=== PATIENT | male | born 1965 | race Caucasian/White ===

== ENCOUNTER 2018-11-24 13:01 | Emergency (ER) | payer MEDICAID ==
[~2018-11-24] VITALS: Ht 167.6 cm; Wt 139.0 kg
[2018-11-24 13:03] VITALS: BP 145/72
--- NOTE | 2018-11-24 13:14 | NUR ---
PATIENT AMBULATED TO BED 5 AT THIS TIME.
--- NOTE | 2018-11-24 13:30 | NUR ---
53 Y M BIB SELF C/O RIGHT SIDE OF HEAD PAIN & INTERMITENT LEFT CHEST PAIN RADIATING TO LEFT SHOULDER X 1 WEEK. PT DESCRIBES PAIN PRESSURE AND ACHING. DENIES TRAUMA. PAIN 01/15. [id number]. VSS AT THIS TIME. NSR. BED IS DOWN, LOCKED, BED RAIL X 1, ERMD NOTIFIED OF PATIENT STATUS. HX : HIGH CHOLERSTEROL MED: CAN'T REMEMBER NAME
[2018-11-24 13:40] LABS: BASOPHILS # (AUTO) 0.1 K/uL (0.00-0.22); BASOPHILS % (AUTO) 0.9 % (0.0-2.0); EOSINOPHILS % (AUTO) 0.2 % (0.0-4.0); HEMATOCRIT 41.4 % (36-52); HEMOGLOBIN 13.9 g/dL (12.0-18.0); LYMPHOCYTES # (AUTO) 1.6 K/uL (2.0-11.5); LYMPHOCYTES % (AUTO) 24.4 % (20.5-51.1); MEAN CORPUSCULAR HEMOGLOBIN 29 pg (27-31); MEAN CORPUSCULAR HGB CONC 34 g/dL (33-37); MEAN CORPUSCULAR VOLUME 85.8 fL (80-94); MONOCYTES # (AUTO) 0.5 K/uL (0.8-1.0); MONOCYTES % (AUTO) 6.8 % (1.7-9.3); NEUTROPHILS # (AUTO) 4.5 K/uL (1.8-7.7); NEUTROPHILS % (AUTO) 67.7 % (42.2-75.2); PLATELET COUNT (AUTO) 231 K/uL (140-450); RED BLOOD CELL COUNT(AUTO) 4.82 MIL/uL (4.20-6.10); RED CELL DISTRIBUTION WIDTH 14.6 % (11.6-13.7); WHITE BLOOD COUNT (AUTO) 6.7 K/uL (4.8-10.8)
[2018-11-24 13:41] LABS: APPEARANCE,URINE CLEAR (CLEAR); BILIRUBIN,URINE NEGATIVE (NEGATIVE); BLOOD, URINE 3+ (NEGATIVE); COLOR,URINE YELLOW (YELLOW); LEUKOCYTE ESTERASE ,URINE NEGATIVE (NEGATIVE); NITRITE, URINE NEGATIVE (NEGATIVE); PH,URINE 7.5 (5.0-9.0); UGLUCOSE NEGATIVE (NEGATIVE)
[2018-11-24 13:59] LABS: PROTHROMBIN TIME 9.3 secs (10.8-13.4)
[2018-11-24] MEDS ORDERED: ASPIRIN 81 MG TAB.CHEW PO ONE (14:05)
[2018-11-24 14:18] LABS: ALBUMIN 3.2 g/dL (3.4-5.0); ANION GAP 15.3 (8-16); CARBON DIOXIDE 25.7 mmol/L (21-32); TOTAL BILIRUBIN 0.8 mg/dL (0.0-1.0)
[2018-11-24 14:23] LABS: RBC,URINE TOO NUMEROUS TO COUN /HPF (0-5)
[2018-11-24 15:20] VITALS: BP 108/61
== END 2018-11-24 15:20 | disposition home or self-care (01) ==
LOC: MED 13:01
DX: R07.89 Other chest pain (principal); I10 Essential (primary) hypertension; E78.5 Hyperlipidemia, unspecified; Z90.49 Acquired absence of other specified parts of digestive tract
CPT/HCPCS: 36415; 71045; 80053; 81001; 84484; 85025; 85610; 87086; 93005; 99284; Q0092